=== PATIENT | female | born 1935 | race Caucasian/White ===

== ENCOUNTER 2023-07-06 15:56 | Inpatient (IN) | payer OTHER, BC ==
[~2023-07-06] VITALS: Ht 152.4 cm; Wt 56.7 kg
[2023-07-06 16:00] VITALS: RESP 19
[2023-07-06 17:52] LABS: MEAN CORPUSCULAR HEMOGLOBIN 31 pg (27-31); MEAN CORPUSCULAR HGB CONC 32 % (32-36); MEAN CORPUSCULAR VOLUME 95 fL (79.0-98.0); PLATELET COUNT (AUTO) 247 K/uL (130-430); RED CELL DISTRIBUTION WIDTH 23.6 % (9.0-15.0); WHITE BLOOD COUNT (AUTO) 12.2 K/uL (4.8-10.8)
[2023-07-06 18:02] LABS: HEMOGLOBIN 6.4 g/dL (12.0-16.0)
[2023-07-06 18:18] LABS: INR 1.1 (0.8-1.2); PROTHROMBIN TIME 10.9 SECS (9.5-12.5)
[2023-07-06 18:23] LABS: ANION GAP 6 (5-15); CALCIUM 9.5 mg/dL (8.4-11.0); CARBON DIOXIDE 30 mmol/L (23-29); CHLORIDE 103 mmol/L (98-107); CREATININE 0.89 mg/dL (0.55-1.30); GLUCOSE 127 mg/dL (74-106); POTASSIUM 3.4 mmol/L (3.5-5.1); SODIUM SERUM 139 mmol/L (136-145); UREA NITROGEN, BLOOD 23 mg/dL (8-21)
[2023-07-06 19:13] LABS: ATYPICAL LYMPHOCYTES % 13 % (0-0); BAND % (MANUAL) 13 % (0-6); BASOPHILS % (MANUAL) 0 % (0-2); EOSINOPHILS % (MANUAL) 0 % (0-7); LYMPHOCYTES % (MANUAL) 6 % (20-46); MONOCYTES % (MANUAL) 48 % (0-11)
[2023-07-06 19:14] LABS: ANISOCYTOSIS 3+; PLATELET ESTIMATE ADEQUATE (ADEQUATE)
[2023-07-06 19:15] LABS: POLYCHROMASIA 2+; STOMATOCYTES MODERATE
[2023-07-06] MEDS ORDERED: DOCUSATE SODIUM 100 MG CAPSULE PO PRN (19:15)
[2023-07-06] MEDS ORDERED: MAGNESIUM SULFATE 50 ML IV PRN (19:15)
[2023-07-06] MEDS ORDERED: LORazepam 2 MG/ML VIAL IVP PRN (19:15)
[2023-07-06] MEDS ORDERED: MUPIROCIN 2% TOPICAL OINTMENT 22 GM NS PRN (19:15)
[2023-07-06] MEDS ORDERED: ONDANSETRON HCL 4 MG/2 ML VIAL IVP PRN (19:15)
[2023-07-06] MEDS ORDERED: ZOLPIDEM TARTRATE 5 MG TABLET PO PRN (19:15)
[2023-07-06] MEDS ORDERED: POTASSIUM CHLORIDE 20 MEQ TAB.PRT.SR PO PRN (19:15)
[2023-07-06] MEDS ORDERED: ACETAMINOPHEN 500 MG TABLET PO PRN ×3 (19:30)
[2023-07-06 20:09] LABS: TOTAL IRON BIND. CAPACITY 181 ug/dL (250-450)
[2023-07-06 20:18] LABS: BILIRUBIN,URINE NEGATIVE (NEGATIVE); BLOOD, URINE NEGATIVE (NEGATIVE); CLARITY/URINE CLEAR (CLEAR); COLOR,URINE YELLOW (YELLOW); GLUCOSE,URINE NEGATIVE (NEGATIVE); KETONES,URINE NEGATIVE (NEGATIVE); LEUKOCYTE ESTERASE ,URINE NEGATIVE (NEGATIVE); NITRITE, URINE NEGATIVE (NEGATIVE); PROTEIN URINE NEGATIVE (NEGATIVE); UROBILINOGEN,URINE 0.2 (0.2-1.0)
[2023-07-06] MEDS ORDERED: BISA10SU61 RC (20:25)
[2023-07-06] MEDS ORDERED: ONDA4TAB55 PO (20:25)
[2023-07-06] MEDS ORDERED: MOM PO (20:25)
[2023-07-06] MEDS ORDERED: AMIO100T4 PO (20:25)
[2023-07-06] MEDS ORDERED: SENN8.6T19 PO (20:25)
[2023-07-06] MEDS ORDERED: L.RH1CAP PO (20:25)
[2023-07-06] MEDS ORDERED: IBRU140C PO (20:25)
[2023-07-06] MEDS ORDERED: ZINC220T4 PO (20:25)
[2023-07-06] MEDS ORDERED: MULT-1117 PO (20:25)
[2023-07-06] MEDS ORDERED: LOVI40 SQ (20:25)
[2023-07-06] MEDS ORDERED: ASCO500T20 PO (20:25)
[2023-07-06] MEDS ORDERED: ACET325T PO (20:25)
[2023-07-06] MEDS ORDERED: PIPE3.379 IV (20:25)
[2023-07-06] MEDS ORDERED: PRO40 PO (20:25)
[2023-07-06] MEDS ORDERED: DOCU-144 PO (20:25)
[2023-07-06] MEDS ORDERED: VANC250C17 PO (20:25)
[2023-07-06] MEDS ORDERED: AMLO5TAB4 PO (20:25)
[2023-07-06] MEDS ORDERED: ACET-73 PO (20:25)
[2023-07-06 23:12] VITALS: BP_SYST 143; PULSE 86; RESP 18; TEMP 98.3; O2SAT 100
[2023-07-07 00:44] VITALS: BP_SYST 131; PULSE 78; RESP 19; TEMP 98.5; O2SAT 97
[2023-07-07 06:00] LABS: HEMATOCRIT 26.6 % (36-48); HEMOGLOBIN 8.5 g/dL (12.0-16.0); MEAN CORPUSCULAR HEMOGLOBIN 28 pg (27-31); MEAN CORPUSCULAR HGB CONC 32 % (32-36); MEAN CORPUSCULAR VOLUME 87 fL (79.0-98.0); PLATELET COUNT (AUTO) 190 K/uL (130-430); RED BLOOD CELL COUNT(AUTO) 3.04 MIL/uL (4.2-6.2); WHITE BLOOD COUNT (AUTO) 12.3 K/uL (4.8-10.8)
[2023-07-07 06:28] LABS: ANION GAP 9 (5-15); CALCIUM 8.7 mg/dL (8.4-11.0); CARBON DIOXIDE 29 mmol/L (23-29); CHLORIDE 106 mmol/L (98-107); CREATININE 0.64 mg/dL (0.55-1.30); GLUCOSE 101 mg/dL (74-106); POTASSIUM 3.5 mmol/L (3.5-5.1); SODIUM SERUM 144 mmol/L (136-145); UREA NITROGEN, BLOOD 16 mg/dL (8-21)
[2023-07-07 08:00] VITALS: BP_SYST 131; PULSE 75; RESP 20; TEMP 98.6; O2SAT 98
[2023-07-07] MEDS ORDERED: FERROUS SULFATE 325 MG TABLET.DR PO ONE (09:15)
[2023-07-07] MEDS ORDERED: amLODIPine BESYLATE 5 MG TABLET ONE (10:51)
[2023-07-07 11:38] LABS: ATYPICAL LYMPHOCYTES % 18 % (0-0); BAND % (MANUAL) 5 % (0-6); LYMPHOCYTES % (MANUAL) 6 % (20-46)
[2023-07-07 11:39] LABS: BASOPHILS % (MANUAL) 0 % (0-2); EOSINOPHILS % (MANUAL) 0 % (0-7); MONOCYTES % (MANUAL) 34 % (0-11); PLATELET ESTIMATE ADEQUATE (ADEQUATE)
[2023-07-07 11:40] LABS: ANISOCYTOSIS 1+
[2023-07-07 12:00] VITALS: BP_SYST 157; PULSE 74; RESP 18; TEMP 98; O2SAT 95
[2023-07-07] MEDS ORDERED: COMMUNICATION ORDER XX ONE (12:45)
[2023-07-07] MEDS: VANCOMYCIN HCL ORAL SOLUTION 125 MG/5 ML, 150 ML PO SCH ×3 (14:27→20:45)
[2023-07-07 16:00] VITALS: BP_SYST 146; PULSE 73; RESP 18; TEMP 97.4; O2SAT 98
[2023-07-07 20:00] VITALS: BP_SYST 145; PULSE 73; RESP 18; TEMP 98.2; O2SAT 96
[2023-07-07 22:52] VITALS: O2SAT 96
[2023-07-08 00:10] VITALS: BP_SYST 146; PULSE 71; RESP 16; TEMP 98.2; O2SAT 97
[2023-07-08 05:46] LABS: ANION GAP 7 (5-15); CALCIUM 8.4 mg/dL (8.4-11.0); CARBON DIOXIDE 29 mmol/L (23-29); CHLORIDE 106 mmol/L (98-107); CREATININE 0.64 mg/dL (0.55-1.30); GLUCOSE 103 mg/dL (74-106); POTASSIUM 3.6 mmol/L (3.5-5.1); SODIUM SERUM 142 mmol/L (136-145); UREA NITROGEN, BLOOD 15 mg/dL (8-21)
[2023-07-08] MEDS ORDERED: IMBRUVICA PO SCH (06:00)
[2023-07-08 06:41] LABS: BASOPHILS % (AUTO) 0.3 % (0.0-2.0); EOSINOPHILS % (AUTO) 0.1 % (0.0-4.0); HEMATOCRIT 23.9 % (36-48); HEMOGLOBIN 7.9 g/dL (12.0-16.0); LYMPHOCYTES # (AUTO) 0.7 K/uL (1.0-5.5); LYMPHOCYTES % (AUTO) 7.1 % (20.5-51.5); MEAN CORPUSCULAR HEMOGLOBIN 31 pg (27-31); MEAN CORPUSCULAR HGB CONC 33 % (32-36); MEAN CORPUSCULAR VOLUME 93 fL (79.0-98.0); MONOCYTES % (AUTO) 58.8 % (1.7-9.3); NEUTROPHILS # (AUTO) 3.4 K/uL (1.8-7.7); NEUTROPHILS % (AUTO) 33.7 % (40.0-70.0); PLATELET COUNT (AUTO) 200 K/uL (130-430); RED BLOOD CELL COUNT(AUTO) 2.56 MIL/uL (4.2-6.2); RED CELL DISTRIBUTION WIDTH 20.8 % (9.0-15.0); WHITE BLOOD COUNT (AUTO) 10.2 K/uL (4.8-10.8)
[2023-07-08 07:52] VITALS: BP_SYST 169; PULSE 65; RESP 16; TEMP 97.6; O2SAT 96
[2023-07-08 08:00] VITALS: O2SAT 96
[2023-07-08 08:06] LABS: FOLATE (FOLIC ACID) 8.1 ng/mL (>3.0)
[2023-07-08] MEDS: VANCOMYCIN HCL ORAL SOLUTION 125 MG/5 ML, 150 ML PO SCH ×3 (08:57→16:55)
[2023-07-08] MEDS ORDERED: FERROUS SULFATE 325 MG TABLET.DR PO SCH (09:00)
[2023-07-08] MEDS ORDERED: amLODIPine BESYLATE 5 MG TABLET PO SCH (09:00)
[2023-07-08 12:00] VITALS: BP_SYST 187; PULSE 74; RESP 16; TEMP 97.2; O2SAT 96
[2023-07-08] MEDS: guaiFENesin 200 MG/10 ML UDC PO PRN ×2 (12:35→15:59)
[2023-07-08 12:51] VITALS: BP_SYST 155; PULSE 74; RESP 18; TEMP 97.2; O2SAT 96
[2023-07-08 16:00] VITALS: BP_SYST 152; PULSE 72; RESP 16; TEMP 97.1; O2SAT 97
[2023-07-08] MEDS ORDERED: AMIODARONE HCL 200 MG TABLET ONE (16:53)
[2023-07-08] MEDS ORDERED: AMIODARONE HCL 200 MG TABLET PO SCH (17:00)
== END 2023-07-08 17:35 | DRG 812 ==
LOC: SED 15:56 → SMU 18:54
PROVIDERS: ADMIT General Practice; ATTEND General Practice
PROC: 30233N1 Transfusion of Nonautologous Red Blood Cells into Peripheral Vein, Percutaneous Approach (ICD-10-PCS; principal; 2023-07-06)
DX: D50.9 Iron deficiency anemia, unspecified (principal); C95.90 Leukemia, unspecified not having achieved remission; J90 Pleural effusion, not elsewhere classified; E87.6 Hypokalemia; D63.8 Anemia in other chronic diseases classified elsewhere; I10 Essential (primary) hypertension; K21.9 Gastro-esophageal reflux disease without esophagitis; K59.00 Constipation, unspecified; Z86.73 Personal history of transient ischemic attack (TIA), and cerebral infarction without residual deficits; Z88.5 Allergy status to narcotic agent; Z91.018 Allergy to other foods; Z79.899 Other long term (current) drug therapy; Z79.1 Long term (current) use of non-steroidal anti-inflammatories (NSAID)
CPT/HCPCS: 36415; 71045; 80048; 81001; 81003; 82607; 82728; 82746; 83037; 83540; 83550; 83735; 85007; 85025; 85027; 85610-TC; 85730-TC; 86886; 86900; 86901; 86920; 87040; 87081; 93005; 99285; P9021